=== PATIENT | male | born 1960 | race Caucasian/White ===

== ENCOUNTER → 2017-01-19 | Outpatient (CLI) | payer OTHER ==
[~2017-01-19] MED LIST: ASCO125T PO; CALC-176 PO; IRON1TAB78 PO; MULT-761 PO; NORCO; VIT1TABL76 PO
--- NOTE | 2017-01-20 10:45 | RADRPT ---
PROCEDURE: XR right knee. CLINICAL INDICATION: Knee pain. TECHNIQUE: AP weightbearing, lateral weightbearing and sunrise views are available for review. 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 There is no evidence of loosening of the prosthesis. There is no evidence of hardware failure. The osseous structures are normal in mineralization, archi tecture and alignment No acute fracture or dislocation is seen.No osseous lesions are identified. T he soft tissues are unremarkable . IMPRESSION: Unremarkable constrained total knee replacement. RPTAT: [facility] .Jesse Beatty MD, Date Time Electronically viewed and signed by .Jesse Beatty MD, on 01/20/2017 10:44 .B/
== END | disposition home or self-care (01) ==
LOC: HKI 14:20
DX: M25.561 Pain in right knee (principal); Z96.651 Presence of right artificial knee joint
CPT/HCPCS: 73562; G0463